=== PATIENT | female | born 1985 | race Caucasian/White ===

== ENCOUNTER 2024-09-26 09:25 | Emergency (ER) | payer BC, SELFPAY ==
[2024-09-26 09:26] VITALS: BP 125/87
--- NOTE | 2024-09-26 10:25 | ED.SKININJ ---
HPI-Injury
General
Chief Complaint: Bite
Time Seen by Provider: 09/26/24 09:46
History of Present Illness-Injury
Initial Injury comments:
39-year-old female presents to the emergency department for evaluation of multiple dog bites to the right forearm. She was breaking up a fight between her 2 dogs. Both dogs are up-to-date on rabies series. No paresthesias or hand weakness. Last
tetanus is unknown
Review of Systems
Review of Systems
Allergies reviewed?: Yes
All Other Systems: ROS reviewed and negative except as documented in HPI and ROS
Phy Exam
Physical Exam
Physical Exam:
GEN: Well appearing, NAD, WDWN
HEENT: Oral mucosa moist, no scleral icterus
Cardiac: Regular rate
Lung: No respiratory distress, no tachypnea
MSK: No gross deformity or injuries
Skin: Good color, no pallor or jaundice, no rashes. Multiple lacerations to the right forearm,Chiefly there is a 3 cm linear laceration to the volar midshaft forearm. There are smaller full-thickness lacerations to the ulnar midshaft forearm
measuring 1 cm and 0.5 cm respectively
Neuro: AO x3, moves all extremities freely
Psych: Calm, cooperative
Course
Orders/Labs/Results
Orders:
Orders
09/26/24 10:23
Tetanus/Diphth/Acelpertussis [Adacel] 0.5 ml IM .ONCE ONE
Vital Signs
Initial and Last Documented VS:
Initial Vital Signs
Temp Pulse Resp BP Pulse Ox
97.9 F 77 20 125/87 98
09/26/24 09:26 09/26/24 09:26 09/26/24 09:26 09/26/24 09:26 09/26/24 09:26
Last Documented Vital Signs
Temp Pulse Resp BP Pulse Ox
97.9 F 77 20 125/87 98
09/26/24 09:26 09/26/24 09:26 09/26/24 09:26 09/26/24 09:26 09/26/24 09:26
Procedures
Laceration Closure
Right Forearm:
Status of Wound: clean
Size of Wound in cm: 3 (Three separate wounds measuring 3cm, 1cm and 0.5cm. Total wound closure of 4.5cm)
Description of Wound Edges: ragged
Preparation: cleaned with saline
Anesthesia: 1% Lidocaine with epi
Wound exploration: explored to base- no FB
Type of Closure: single layer closure
Skin Closure Material: 5-0 prolene
Number of sutures: 9
MDM/Problems Addressed
MDM/Problems Addressed:
9 total sutures placed multiple lacerations, loosely closed due to animal bite wound. Will start empiric Augmentin, tetanus status updated
*Critical Care Note
Total Time (30-74mins, 75-104mins- exclusive of procedures): Not Applicable
ED Attending Note
-
Portions of this chart may have been created with voice recognition software.� Occasional wrong word or��sound alike� substitutions may have occurred due to the inherent limitations of voice recognition software.
Discharge Plan
Departure
Patient Disposition: Home (Routine Discharge)
Date of Disposition: 09/26/24
Time of Disposition: 10:25
Patient with high blood pressure during this ER visit?: No
Discharge Problem:
Dog bite of right forearm
Instructions: Animal Bites (DC)
Prescriptions:
New
amoxicillin-pot clavulanate 875-125 mg tablet
1 tab PO BID 5 Days Qty: 10 0RF
acetaminophen-codeine 300-30 mg tablet
1 tab PO Q4HPRN PRN (Reason: pain) Qty: 8 0RF
Referrals:
Marino Conte, DO [Family Provider] -
Activity Restrictions/Additional Instructions:
Keep dry for the next 24 hours then you may wash with soap and water, change dressings daily and keep covered at all times. Sutures should be removed in 10 days, you have [address]
Take the antibiotic as prescribed. If you develop redness and pain at the site you may require further evaluation in the emergency department for a wound infection
Interventions
Interventions:
*Risk Screen - Suicide Last Done: 09/26/24 09:26
*General Assessment Last Done: 09/26/24 09:26
*Neglect/Abuse Screening Last Done: 09/26/24 09:26
*Nursing Disposition Last Done: 09/26/24 10:37
ED-Skin Assessment Last Done: 09/26/24 10:20
Discharge Date and Time
Discharge Date/Time: 09/26/24 10:38
Print Language: VINCENTIAN
[2024-09-26] MEDS: ADACEL 0.5 ML IM (10:32)
== END 2024-09-26 10:38 | disposition home or self-care (01) ==
LOC: EMR 09:25
PROVIDERS: EMERGENCY PHYSICIAN Emergency Medicine; FAMILY PHYSICIAN Family Medicine
DX: S51.811A Laceration without foreign body of right forearm, initial encounter (principal); W54.0XXA Bitten by dog, initial encounter; Z23 Encounter for immunization
CPT/HCPCS: 90471; 12002; 99282; 90715